=== PATIENT | male | born 2005 | race Caucasian/White ===

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

== ENCOUNTER 2024-07-22 13:50 | Emergency (ER) | payer BC, SELFPAY ==
[2024-07-22 13:59] VITALS: BP 140/73; PULSE 75; RESP 18; TEMP 36.4; O2SAT 100
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
--- NOTE | 2024-07-22 14:01 | ECG_ITS ---
Test Date: 2024-07-22 14:12:11 Measurements Intervals [place] Rate: 78 P: 59 MA: 177 QRS: 74 QRSD: 109 T: 49 QT: 358 QTc: 409 Interpretive Statements SINUS RHYTHM WITH SINUS ARRHYTHMIA INCOMPLETE RIGHT BUNDLE BRANCH BLOCK [90+ ms QRS DURATION, TERMINAL R IN V1/V2, 40+ ms S IN I/aVL/V4/V5/V6] MINIMAL VOLTAGE CRITERIA FOR LVH, CONSIDER NORMAL VARIANT [MEETS CRITERIA IN ONE OF: R(aVL), S(V1), R(V5), R(V5/V6)+S(V1)] ST ELEVATION, PROBABLY EARLY REPOLARIZATION [ST ELEVATION WITH NORMALLY INFLECTED T WAVE] No previous ECG available for comparison Electronically Signed On 07-22-2024 15:27:45 CDT by Kristi Castro M.D.
[2024-07-22] MEDS: ONDANSETRON HCL ODT 4 MG TABLET SUBLINGUAL (14:04)
[2024-07-22 14:08] LABS: Glucose Point of Care 110 mg/dl (65-105)
--- OUTSIDE RECORDS SUMMARY | 2024-07-22 15:27 | XMS_ITS | Clinical Summary ---
Author Organization [facility] Address [facility] [place] [address] Care Team Providers Care Webbing Inspector Name Role Phone Johnnie Alvares DO Primary Care Provider [phone] Medications No known medications Social History Tobacco Use Types Packs/Day Years Used Date Smoking Tobacco: Never Smokeless Tobacco: Never Tobacco Cessation:Counseling Given: Not Answered Sex and Gender Information Value Date Recorded Sex Assigned at Not on file Legal Sex Male 5:52 PM CDT Gender Identity Not on file Sexual Orientation Not on file Last Filed Vital Signs Vital Sign Reading Time Taken Comments Blood Pressure 120/65 11/03/2022 11:54 PM CDT Pulse 75 11/03/2022 11:54 PM CDT Temperature 36.7 C (98.1 F) 11/03/2022 11:54 PM CDT Respiratory Rate 18 11/03/2022 11:54 PM CDT Oxygen Saturation 100% 11/03/2022 11:54 PM CDT Inhaled Oxygen Concentration - - Weight 81.6 kg (180 lb) 11/03/2022 10:12 PM CDT Height 180.3 cm (5' 11 ) 11/03/2022 10:12 PM CDT Body Mass Index 25.1 11/03/2022 10:12 PM CDT Plan of Treatment Health Maintenance Due Date Last Done Comments Annual Physical 02/13/2007 HPV Vaccines (1 - Male 3-dose series) 02/13/2019 Meningococcal B Vaccine (1 of 2 - Standard) 2020 Hepatitis C 02/13/2022 COVID-19 Vaccine ( - season) 2024 Influenza Adult (#1) 2024 DTaP, Tdap and Td Vaccines (7 - Td or Tdap) 12/14/2025 12/15/2015, 11/18/2009, 11/18/2009, Additional history exists Hepatitis B Vaccines Completed 2004, 2004, 2004, Additional history exists Pneumococcal Vaccine: Pediatrics (0 to 5 Years) and At-Risk Patients (6 to 64 Years) Completed 03/02/2005, 2004, 2004, Additional history exists Meningococcal Vaccine Aged Out 12/16/2015 No vinh dante eligible based on patient's age to complete this topic RSV Immunizations Under 20 Months Aged Out No longer eligible based on patient's age to complete this topic [place] [address] [place] [address] Care Teams Webbing Inspector Relationship Specialty Start Date End Date Johnnie Alvares DO [facility] [place] [address] PCP - General FAMILY PRACTICE 11/03/22
--- OUTSIDE RECORDS SUMMARY | 2024-07-22 15:27 | XMS_ITS | Clinical Summary ---
Author Organization [facility] Address [address] [place] [address] Care Team Providers Care Health And Safety Coordinator Name Role Phone Unavailable Primary Care Provider Unavailabl e Source Comments [facility],non-owned Affiliates and Associated Physician Practices is amultiple site organization consisting of ambulatory clinics and hospital sitesin [place], [place], [place] and [place]. This disclosure is being madepursuant to the Care Everywhere program and may not contain all information available regarding this patient. Last updated 18.[facility] Allergies No known active allergies Medications * Be aware that medications may not be up to date on this document. Alwaysverify current medications with the patient. Medication Sig Dispensed Refills Start Date End Date Status Phenylephrine-Chlorphen -DM (MARGOT-DM) 12.5-4-15 MG/5ML SYRP Take 2.5 mL by mouth 3 times daily. 120 ml 0 06/01/2009 Active Immunizations Name Administration Dates Next Due DTAP/IPV 11/18/2009 DTaP VACCINE IM (6wk-6yrs) 08/30/2005,2004 ,2004,2004 HEP A PEDS 2 DOSE 04/24/2007,02/22/2006 HEP B VACCINE, PED/ADOL 2004,2004,,2004 HIB BOOSTER 05/21/2005,2004,2004 ,2004 MMR 11/18/2009,03/02/2005 PNEUMOCOCCAL CONJ, PEDS 03/02/2005,2004,,2004 POLIO IPV 2004,2004,2004 PPD 03/02/2005 VARICELLA 11/18/2009,05/21/2005 Social History Tobacco Use Types Packs/Day Years Used Date Smoking Tobacco: Never Assessed Sex and Gender Information Value Date Recorded Sex Assigned at Not on file Gender Identity Not on file Sexual Orientation Not on file Last Filed Vital Signs Vital Sign Reading Time Taken Comments Blood Pressure 111/54 07/13/2014 12:46 PM CDT Pulse 72 07/13/2014 12:46 PM CDT Temperature 37 C (98.6 F) 07/13/2014 12:46 PM CDT Respiratory Rate 18 07/13/2014 12:46 PM CDT Oxygen Saturation 100% 07/13/2014 10:48 AM CDT RA Inhaled Oxygen Concentration - - Weight 53.3 kg (117 lb 8.1 oz) 07/13/2014 10:48 AM CDT Height 118.1 cm (3' 10.5 ) 11/18/2009 3:22 PM CD T Body Mass Index - - Plan of Treatment Health Maintenance Due Date Last Done Comments DTAP/TDAP/TD VACCINES (6 - Tdap) 02/13/2015 11/18/2009, 08/30/2005, 2004, Additional history exists HIV SCREENING 02/13/2019 HPV VACCINE (1 - Male 3-dose series) 02/13/2019 MENINGOCOCCAL (Group B) VACCINE SHARED DECISION-MAKING (1 of 2 - Standard) 2020 HEPATITIS C SCREENING 02/09/2022 COVID-19 VACCINE ( - season) 2024 INFLUENZA VACCINE (#1) 2024 DEPRESSION SCREENING 05/06/2024 ZOSTER VACCINE (1 of 2) 02/13/2054 HEPATITIS B VACCINE Completed 2004, 2004, 2004, Additional history exists PNEUMOCOCCAL VACCINE Completed 03/02/2005, 2004, 2004, Additional history exists HIB VACCINE Completed 05/21/2005, 08/05, 2004, Additional history exists MENINGOCOCCAL GROUPS A/C/Y/W VACCINE Aged Out No longer eligible based on patient's age to complete this topic Navneet Underwood Personal/Famil y Self 2005 [place] RADHA UNDERWOOD [address] [place] [address]
== END 2024-07-22 14:25 | disposition home or self-care (01) ==
PROVIDERS: Emergency Provider Nurse Practitioner Family; PCP Internal Medicine
DX: T75.3XXA Motion sickness, initial encounter (principal); Y92.813 Airplane as the place of occurrence of the external cause; F41.9 Anxiety disorder, unspecified; Z86.16 Personal history of COVID-19
CPT/HCPCS: 82948; 93005; 99213; A9270; G0463